=== PATIENT | female | born 1975 | race African-American/Black ===

== ENCOUNTER 2017-04-27 11:52 | Inpatient (IN) | payer OTHER ==
--- NOTE | 2017-04-15 09:25 | HP ---
Admitting History and Physical - Primary Care Physician PCP: Hayden Lawler - Admission Chief Complaint: right breast cancer History of Present Illness: Patient is a 41 yo female noted to have a right lower inner quad mass in December 2016. Patient underwent a mammo and US. Right breast US was positive for a 1.1 cm mass. Patient underwent an US guided core bx of this lesion which was positive for DCIS ER and MS positive. MRI done 02/25/2017 was c/w known cancer without evidence of contralateral dz. Patient does have a strong family h/o breast cancer therefore she has opted to do bilateral mastectomy, snbx and reconstruction. History Source: Patient Limitations to Obtaining History: No Limitations - Past Surgical History Past Surgical History: Yes: Breast Biopsy (right breast core bx (2005) benign) Home Medications - Allergies Allergies/Adverse Reactions: Allergies Allergy/AdvReac Type Severity Reaction Status Date / Time No Known Allergies Allergy Verified 04/15/17 09:36 Family Disease History - Family Disease History Family Disease History: CA: Grandparent (breast cancer), Mother (breast cancer) Other Family History: paternal cousin-breast cancer. father-lung cancer Review of Systems - Review of Systems Constitutional: reports: No Symptoms Cardiovascular: reports: No Symptoms Respiratory: reports: No Symptoms Physical Examination Constitutional: Yes: Well Nourished Cardiovascular: Yes: WNL Respiratory: Yes: WNL Breast(s): Yes: Other (Palpable right lower inner quad 1 cm mass noted. No other suspicious masses or adenopathy noted) Problem List - Problems (1) Ductal carcinoma in situ (DCIS) of right breast Code(s): D05.11 - INTRADUCTAL CARCINOMA IN SITU OF RIGHT BREAST Assessment/Plan bilateral mastectomy with right snbx, lymphoscintogram poss andx and reconstruction
[2017-04-20 15:48] VITALS: BMI 22.6
[2017-04-27] MEDS ORDERED: BUPIVACAINE HCL/PF 2.5 MG/ML - 30 ML VIAL IJ ONE (12:48)
[2017-04-27] MEDS ORDERED: ceFAZolin SODIUM 1 GM VIAL ONE (12:48)
[2017-04-27] MEDS ORDERED: GENTAMICIN SO4 80 MG/2 ML VIAL ONE (12:48)
[2017-04-27] MEDS ORDERED: HYDROmorphone *PCA* 10MG/50ML DISP.SYRIN PCA ONE ×2 (16:19→18:51)
[2017-04-27] MEDS ORDERED: ZOLPIDEM TARTRATE 5 MG TABLET PO PRN (16:27)
[2017-04-27] MEDS ORDERED: ACETAMINOPHEN 325 MG TABLET (FP) PO PRN (16:27)
[2017-04-27] MEDS ORDERED: PROMETHAZINE HCL 25 MG/1 ML VIAL IVPUSH PRN (18:08)
[2017-04-27] MEDS ORDERED: HYDROmorphone *PCA* 10MG/50ML DISP.SYRIN PCA SCH (18:15)
[2017-04-27] MEDS: CEFAZOLIN 1 GM/D5W 50 ML IVPB SCH (20:33)
[2017-04-27 21:05] LABS: HIV 1 & 2 AB NEGATIVE; HIV 1 AGp24 NEGATIVE
[2017-04-28] MEDS: CEFAZOLIN 1 GM/D5W 50 ML IVPB SCH ×4 (03:35→21:13)
--- NOTE | 2017-04-28 07:52 | OP ---
DATE OF OPERATION: 04/27/2017 PREOPERATIVE DIAGNOSIS: Right breast ductal carcinoma in situ, lower inner quadrant. POSTOPERATIVE DIAGNOSIS: Right breast ductal carcinoma in situ, lower inner quadrant. PROCEDURE: Bilateral nipple-sparing mastectomy with a right axillary sentinel lymph node biopsy with bilateral direct implant reconstructions with AlloDerm. ANESTHESIA: General endotracheal anesthesia. PRIMARY SURGEON: Desmond Hernandez MD 1ST UNDER SEAL OPERATOR: JONES Santiago PRIMARY SURGEON FOR THE BILATERAL RECONSTRUCTION WITH ALLODERM: MD DR. KIM Rodriguez'S 1ST UNDER SEAL OPERATOR: JONES Herndon COMPLICATIONS: There were no complications. Briefly, the patient is a 41-year-old premenopausal female of [place] descent. The patient felt a mass in the lower inner aspect of the right breast back in December 2016 and mammography and ultrasound showed a 1.1-cm density in the right breast lower inner quadrant. Ultrasound-guided core biopsy showed low- to intermediate-grade DCIS which was ER/CT positive. MRI showed the cancer to be localized. The patient was offered a partial mastectomy, but because of her strong family history she decided to have bilateral mastectomies and was seen by Plastic Surgery and chose bilateral direct implant reconstructions. The patient understood the need for sentinel lymph node biopsy. She was brought in for the procedure on April 27, 2017. She first underwent a lymphoscintigraphy at [facility] and was injected with technetium 99 around the right breast nipple-areolar region. She was then brought to the [facility] holding area. In the holding area, site verification was made and informed consent was obtained. She was marked preoperatively by the plastic surgeon. Patient was then brought into the operating room and laid in the OR table in the supine position. Venodynes were placed on the lower extremities. She received 1 g of Ancef prior to incision. Both breasts were sterilely prepped and draped in the usual fashion. The right axillary sentinel lymph node was first performed. No blue dye was injected since she was having a nipple-sparing procedure. Incision was made just below the hair-bearing area and dissection was undertaken using the Neoprobe to direct the dissection. Two hot nodes were easily found in the level I region of the right axilla with the 1st sentinel node having a 10-second gamma count of 35,286. The 2nd sentinel node had a 10-second gamma count of 16,420. Both were sent for frozen section, came back negative, so no other nodes were removed. Hemostasis was achieved. At this point, the right breast nipple-sparing mastectomy was first performed through an inframammary incision about 9 cm in length. The skin edges were everted and the breast was retracted inferiorly using Andrew clamps. The skin flap was raised using the PEAK radiofrequency device superiorly to the level of the clavicle, medially to the level of the sternum, laterally to the level of the latissimus, and inferiorly below the level of the inframammary fold. The breast was taken down off the pectoralis major muscle from inferomedial to superolateral and completely removed intact. It was oriented with a long lateral, short superior suture and weighed to allow for appropriate cosmetic result. Specimen radiograph of the right breast showed removal of the clip in question. It was oriented with a long lateral, short superior suture and placed in formalin and sent to Pathology as specimen. A separate anterior margin was taken in the lower inner aspect just underneath the skin as a separate anterior margin which was sent with a suture marking the biopsy cavity side. Hemostasis was achieved and the wound was copiously irrigated. At this point, instruments, gloves were changed. The left breast was approached and again a nipple-sparing mastectomy was performed through an inframammary approach about 9 cm in length in the inframammary fold. Skin edges were everted and the breast was retracted inferiorly using [place] clamps. The skin flap was raised superiorly to the level of the clavicle, medially to the level of the sternum, laterally to the level of the latissimus, and inferiorly below the level of the inframammary fold. The breast was taken down off the pectoralis major muscle from inferomedial to superolateral and completely removed intact. It was oriented with a long lateral, short superior suture and weighed to allow for appropriate cosmetic result. Hemostasis was achieved and the skin flap was trimmed for a good cosmetic result. Retroareolar biopsies were taken underneath each nipple-areolar complex and sent for frozen sections and came back negative, so both nipples were spared. At this point, Dr. Briceno became the primary surgeon and performed bilateral direct implant reconstructions in a subpectoral location using AlloDerm sutured into the inferolateral aspects of both pectoralis major muscles to allow for the direct implant reconstruction. Two Mann drains were placed around each implant and brought through separate stab incisions on the lateral skin flaps. All wounds will be closed and dictated separately by Plastic Surgery. We did use the SPY skin perfusion device during the case and she had excellent skin perfusion on both flaps and nipples. At this point in the case, estimated blood loss was about 100 mL and she was hemodynamically stable. The patient will be extubated and recovered and then admitted postoperatively for pain control as well as wound management. Again, all sponge and needle counts were correct at this point of the case. DESMOND HERNANDEZ M.D. [id number]
--- NOTE | 2017-04-28 08:53 | PN ---
Progress Note, Physician Chief Complaint: Right breast cancer S/P Bilateral nipple sparing mastectomies with implant and alloderm right sentenel node biopsy History of Present Illness: patient is C/o nausea given zofran this am. eating crackers and jesse shantell, C/O pain not OOB yet - Current Medication List Current Medications: Active Medications Acetaminophen (Tylenol -) 650 mg PO Q4H PRN PRN Reason: FEVER Heparin Sodium (Porcine) (Heparin -) 5,000 unit SQ BID MATT Hydromorphone HCl (Dilaudid [employer] -) 10 mg POLYMER MATERIALS CONSULTANT POLYMER MATERIALS CONSULTANT MATT PRN Reason: Protocol Stop: 05/04/17 18:10 Cefazolin Sodium (Ancef 1 Gm Premixed Ivpb -) 50 mls @ 100 mls/hr IVPB Q6H-IV MATT Stop: 05/04/17 20:59 Last Admin: 04/28/17 08:10 Dose: 100 mls/hr Dextrose/Sodium Chloride (D5-1/2ns -) 1,000 mls @ 100 mls/hr IV ASDIR MATT Ondansetron HCl (Zofran Injection) 4 mg IVPB Q6H PRN PRN Reason: NAUSEA AND/OR VOMITING Zolpidem Tartrate (Ambien -) 5 mg PO HS PRN PRN Reason: Insomnia - Objective Vital Signs: Vital Signs Temperature 98.7 F 04/28/17 05:55 Pulse Rate 81 04/28/17 05:55 Respiratory Rate 20 04/28/17 08:01 Blood Pressure 123/68 04/28/17 05:55 O2 Sat by Pulse Oximetry (%) 96 04/28/17 08:01 Constitutional: Yes: Well Nourished Breast(s): Yes: Other (Bilateral skin flaps viable no echymosisi incision intact with steristrips LEONIE drain funtioning) Problem List - Problems (1) Ductal carcinoma in situ (DCIS) of right breast Code(s): D05.11 - INTRADUCTAL CARCINOMA IN SITU OF RIGHT BREAST Assessment/Plan continue IV antibiotics continue POLYMER MATERIALS CONSULTANT, will discontinue and start percocet when patient is tolerating po well OOB with assitance zofran prn
[2017-04-28 08:54] LABS: MCH 22.4 pg (25.7-33.7); MCHC 31.5 g/dl (32.0-36.0); MEAN PLT VOLUME 9.8 fl (7.5-11.1); PLATELET COUNT 273 K/MM3 (134-434); RDW 16.7 % (11.6-15.6); WHITE BLOOD COUNT 17.6 K/mm3 (4.0-10.8)
[2017-04-28] MEDS: HEPARIN NA (PORCINE) 5,000 UNITS/ML 1ML VIAL SQ SCH ×2 (09:31→21:13)
[2017-04-28] MEDS: ONDANSETRON 4 MG/2 ML VIAL IVPB PRN (09:34)
--- NOTE | 2017-04-28 09:44 | PN ---
Progress Note (short form) - Note Progress Note: ANESTHESIOLOGY: 41 YO female POD #1 s/p BL mastectomy with reconstruction. Patient c/o n/v and pruritis. Adequate pain relief with hydromorphone ASPARAGUS BUNCHER. Primary team planning to transition to PO meds. Some relief of n/v with Ondansetron. Encouraged patient to get OOB and ambulate. Will follow.
[2017-04-28] MEDS: DEXTROSE 5%-0.45% SALINE 1,000 ML IV SCH ×2 (12:44→17:23)
[2017-04-28] MEDS ORDERED: HYDROmorphone HCL CARPU-JECT 1 MG/1 ML DISP.SYRIN IVPB PRN (16:34)
[2017-04-28 21:34] LABS: ANISOCYTOSIS 1+; SCHISTOCYTES OCC; TARGET CELLS OCC
[2017-04-29] MEDS: CEFAZOLIN 1 GM/D5W 50 ML IVPB SCH ×2 (03:08→10:14)
[2017-04-29 05:46] VITALS: BP 114/69; PULSE 69; TEMP 98.4
--- NOTE | 2017-04-29 10:09 | PN ---
Progress Note, Physician Chief Complaint: S/P bilateral mastectomy with reconstruction with snbx POD #2 History of Present Illness: Patient seen at the bedside, reports less nausea and good pain control. - Current Medication List Current Medications: Active Medications Acetaminophen (Tylenol -) 650 mg PO Q4H PRN PRN Reason: FEVER Heparin Sodium (Porcine) (Heparin -) 5,000 unit SQ BID MATT Last Admin: 04/28/17 21:13 Dose: 5,000 unit Cefazolin Sodium (Ancef 1 Gm Premixed Ivpb -) 50 mls @ 100 mls/hr IVPB Q6H-IV MATT Stop: 05/04/17 20:59 Last Admin: 04/29/17 03:08 Dose: 100 mls/hr Dextrose/Sodium Chloride (D5-1/2ns -) 1,000 mls @ 100 mls/hr IV ASDIR MATT Last Admin: 04/28/17 17:23 Dose: Not Given Ondansetron HCl (Zofran Injection) 4 mg IVPB Q6H PRN PRN Reason: NAUSEA AND/OR VOMITING Last Admin: 04/28/17 09:34 Dose: 4 mg Oxycodone/Acetaminophen (Percocet 5/325 -) 2 combo PO Q4H PRN PRN Reason: PAIN LEVEL 6-10 Last Admin: 04/29/17 08:50 Dose: 2 combo Oxycodone/Acetaminophen (Percocet 5/325 -) 1 combo PO Q4H PRN PRN Reason: PAIN LEVEL 1-5 Zolpidem Tartrate (Ambien -) 5 mg PO HS PRN PRN Reason: Insomnia - Objective Vital Signs: Vital Signs Temperature 98.4 F 04/29/17 05:43 Pulse Rate 69 04/29/17 05:43 Respiratory Rate 19 04/29/17 05:43 Blood Pressure 114/69 04/29/17 05:43 O2 Sat by Pulse Oximetry (%) 99 04/29/17 05:42 Constitutional: Yes: Well Nourished, Calm Breast(s): Yes: Other (Bilateral flaps warm and with good color. LEONIE x4 with serosanginous discharge. Steristrips intact.) Labs: CBC, BMP 04/28/17 07:30 Problem List - Problems (1) Ductal carcinoma in situ (DCIS) of right breast Code(s): D05.11 - INTRADUCTAL CARCINOMA IN SITU OF RIGHT BREAST Assessment/Plan bilateral mastectomy with right snbx, lymphoscintogram and reconstruction POD #2 Plan: Discharge home today with pain meds and axbx health services manager to see patient for VNS Patient to followup with Dr. Lawler and Dr. Briceno in the office
[2017-04-29] MEDS: HEPARIN NA (PORCINE) 5,000 UNITS/ML 1ML VIAL SQ SCH (10:14)
[2017-04-29] MEDS: ONDANSETRON 4 MG/2 ML VIAL IVPB PRN (11:11)
--- NOTE | 2017-05-01 10:27 | OP ---
DATE OF OPERATION: 04/27/2017 PREOPERATIVE DIAGNOSES: 1. Bilateral acquired chest wall deformity status post bilateral mastectomy (611.89). 2. Personal history of genetic carcinoma. POSTOPERATIVE DIAGNOSES: 1. Bilateral acquired chest wall deformity status post bilateral mastectomy (611.89). 2. Personal history of genetic carcinoma. PROCEDURE: 1. Right immediate breast reconstruction utilizing immediate insertion of silicone breast implant and AlloDerm reconstruction. 2. Left immediate breast reconstruction utilizing immediate insertion of silicone breast implant and AlloDerm reconstruction. 3. Intravenous injection of indocyanine green dye and intraoperative diagnostic evaluation of non-coronary intraoperative fluorescein vascular angiography x 2. SURGEON: Dr. Vida Briceno GRINDER MILL OPERATOR: Michelle Kan PA-C ANESTHESIA: GENERAL OPERATIVE PROCEDURE IN DETAIL: The patient was taken to the operating room. After induction of general anesthesia in the supine position, both arms were extended and padded. Venodyne boots were placed. The entire chest wall was painted with ChloraPrep solution over its entire extent, and sterile drapes were placed in the usual fashion. The markings, which had been made in the standing position preoperatively, were reoutlined with the patient's knowledge. Time-out procedure was performed. Attention was turned by Dr. Desmond Lawler to the mastectomies. Bilateral inframammary incisions were made and Dr. Desmond Lawler performed mastectomies. This will be dictated under separate cover. Upon completion of the mastectomies, the wounds were copiously irrigated and attention was turned to the right breast. A subpectoral dissection was begun on the right breast, superiorly from the second rib, medially to the sternal fibers, and down to the inframammary fold, elevating the pectoralis major muscle from its insertion. At this point, an 8.0 x 16.0 sheet of AlloDerm was brought into the field and sutured superiorly along the pectoralis major muscle after rehydration. This was carried along the lateral mammary fold and down the side of the breast reconstruction. At this point, an AlloDerm tissue matrix Contour medium perforated sheaths placed bilaterally, and she had implants placed of Natrelle Inspira cohesive style SCF 415-mL volume. The left breast tissue removed was 301 gm, and the right breast approximately 287 gm. This implant was placed and then sutured with 3-0 Vicryl suture continued along the inframammary fold, completely covering the implant itself. The exact same procedure was carried out symmetrically on the opposite breast, also placing a Natrelle Inspbolton cohesive style SCF 415-mL volume implant in the same subpectoral pocket. Good symmetry was seen in the sitting position. After the implants were in place, the patient was injected with 10 mL of Isocyanide green dye and the Spy imaging system was brought into the field. The skin flowed to the right and left breasts and the nipple areolar complex, and the entire skin flaps were evaluated and seen to be viable with good blood flow. The Spy intraoperative angiogram showed good blood flow before and after the placement of the implants. Two Willy-Walters drains were brought out through separate stab wounds laterally. The Smart Infuser pump catheter was inserted medially and into the subpectoral position. Both wounds were closed symmetrically using 3-0 PDS suture on the deep tissue, 3-0 in a deep dermal fashion, and 4-0 in a subcuticular fashion. Both wounds were dressed sterilely with Mastisol and Steri-Strips with a surgical bra and a compression strap. The patient tolerated the procedure well. She was awakened, extubated and transferred to the recovery room in satisfactory condition. The pediatric dental assistant was present during the entire portion of the operation and closure. DESMOND BRICENO M.D. [id number]
--- NOTE | 2017-05-03 11:57 | PATH ---
Surgical Pathology Report Patient Name: LAUREN BAIN Med. Rec. #: [id number] /Age/Gender: 1975 (Age: 41) / F Account: [id number] Location: [facility] Taken: 04/27/2017 Received: 04/27/2017 Reported: 05/03/2017 Physicians: Hayden Lawler M.D. Specimen(s) Received A: RIGHT AXILLARY SENTINEL LYMPH NODE # 1. FS B: RIGHT AXILLARY SENTINEL LYMPH NODE #2. FS C: LEFT RETROAREOLAR BX. FS D: RIGHT RETROAREOLAR BIOPSY. FS E: LEFT BREAST MASTECTOMY F: RIGHT BREAST MASTECTOMY G: RIGHT BREAST ANTERIOR MARGIN Clinical History Right breast DCIS lower inner quadrant, left prophylactic Intraoperative Consult Diagnosis A. Right axillary sentinel node #1, frozen section: One negative lymph node. B. Right axillary sentinel node #2, frozen section: One negative lymph node. C. Left retroareolar biopsy, frozen section: Negative for malignancy. D. Right retroareolar biopsy, frozen section: Negative for malignancy. Blessing Wheatley M.D. 04/27/17 Final Diagnosis A. lymph node, right axillary sentinel #1, excision (FS): One lymph node, negative for metastatic carcinoma (0/1). B. lymph node, right axillary sentinel #2, excision (Fs): One lymph node, negative for metastatic carcinoma (0/1). C. retroareola, left breast, biopsy (FS): Benign breast tissue; negative for malignancy. D. retroareola, right breast, biopsy (FS): Benign breast tissue; negative for malignancy. E. breast, left, nipple-sparing mastectomy: Atypical ductal hyperplasia (AdH) arising in a background of proliferative fibrocystic changes. Small intraductal papillomas, fibroadenomas and secretory changes. F. breast, right, nipple-sparing mastectomy: Multiple (at least FOUR) foci of microinvasive carcinoma (</= 1 mm; with one focus showing mucinous features) arising in association with extensive multifocal and multicentric ductal carcinoma in situ (DCIS). (See note) DCIS shows solid, cribriform and micropapillary ARCHITECTURE, intermediate to high nuclear grade with moderate necrosis, associated calcifications and extensive lobular extension. (See note) DCIS INVOLVES SIXTEEN OF TWENTY-TWO SLIDES (16/22), with the largest contiguous focus of DCIS measuring 1.5 cm in greatest dimension, MICROSCOPICALLY. DCIs is present predominantly in the lower inner quadrant (liq) with additional foci involving the remaining three quadrants. DCIS EXTENDS TO THE ANTERIOR AND DEEP MARGINS. SURGICAL MARGINS ARE uninvolved by microinvasive carcinoma; microinvasive carcinoma is at 4 mm FROM the closest (deep) margin. SEE specimen G For final anterior margin. No definitive lymphovascular invasion is identified. Remaining breast tissue shows proliferative fibrocystic changes and intraductal papillomas. Pathologic stage (ptnm): pt1mic (m) pN0. see also (micro)invasive carcinoma case summary below. Note: Myoepithelial immunohistochemical markers (smm-hc & p63, performed at [facility], block f9) demonstrate the absence of myoepithelial cells in one focus of microinvasive carcinoma (the second focus of microinvasive carcinoma is no longer present on deeper levels in immunohistochemical slides). Two definitive foci of microinvasion are identified in block F4 with two additional foci suspicious for microinvasion present (on H&E slides). Only one focus of microinvasive carcinoma (with mucinous features) is present on deeper sections. E-Cadherin immunostains (performed at [facility], blocks F3, F5) demonstrate membranous positivity in the foci of lobular extension of DCIS. These findings support the diagnosis. G. breast, right, anterior margin, excision: DCIS, intermediate nuclear grade, present in two of four slides (2/4). The new margin is uninvolved by DCIS; DCIS is aT 2 mm FROM THE closest NEW margin. Comments Breast Invasive Carcinoma: Surgical Pathology Cancer Case Summary Based on AJCC/UICC TNM, 7th edition Procedure _X_ Other: nipple-sparing mastectomy Lymph Node Sampling _X_ [place] lymph node(s) Specimen Laterality _X_ Right Tumor Size: Size of Largest Invasive Carcinoma _X_ Microinvasion only (= 1 mm) Tumor Focality _X_ Multiple foci of (micro) invasive carcinoma Number of foci: at least 4 Sizes of individual foci: </= 1 mm _X_ Not applicable (excisions less than total mastectomy) Ductal Carcinoma In Situ (DCIS) _X_ DCIS is present _X_ as a major component (>25% of tumor, extensive intraductal component) Histologic Type of Invasive Carcinoma : _X_ Micro-invasive carcinoma Histologic Grade: (Raisa Histologic Score) Tubular Differentiation _X_ Only microinvasion present (not graded) Nuclear Pleomorphism _X_ Only microinvasion present (not graded) Mitotic Rate _X_ Only microinvasion present (not graded) Overall Grade _X_ Only microinvasion present (not graded) Margins _X_ Margins uninvolved by (micro)invasive carcinoma Distance from closest margin: 4 mm (deep) _X_ Margin(s) positive for DCIS: deep Lymph-Vascular Invasion _X_ Indeterminate Lymph Nodes Total number of lymph nodes examined (sentinel and nonsentinel): 2 Number of sentinel lymph nodes examined: 2 Number of lymph nodes with macrometastases ( > 2 mm): 0 Number of lymph nodes with micrometastases (>0.2 mm to 2 mm and/or >200cells):0 Number of lymph nodes with isolated tumor cells (=0.2 mm and =200 cells): 0 Extranodal Extension _X_ Not applicable Pathologic Staging (pTNM) Primary Tumor (Invasive Carcinoma): pT1(chaka) Regional Lymph Nodes (pN): pN0(sn) Biomarker Studies ER, ME and Her2 studies are being attempted on the foci of microinvasive carcinoma; the results will be reported separately in an addendum. Electronically Signed Karley Wheatley M.D. Gross Description A. Received fresh for frozen section labeled "right axillary sentinel node #1," is a 1.0 x 0.8 x 0.3 cm lymph node with attached fatty tissue. Frozen section is performed on the lymph node. The frozen section residue is entirely submitted in one cassette. B. Received fresh for frozen section labeled "right axillary sentinel node #2," is a 2.0 x 1.4 x 0.5 cm lymph node with attached fatty tissue. The lymph node is bisected and frozen section is performed on the lymph node. The frozen section residue is entirely submitted in 2 cassettes. C. Received fresh for frozen section labeled "left retroareolar biopsy," is a 0.9 x 0.7 x 0.2 cm portion of red and yellow soft tissue. Frozen section is performed on the specimen. The frozen section residue is entirely submitted in one cassette. D. Received fresh labeled "right breast retroareolar biopsy," is a 1.4 x 1.0 x 0.3 cm portion of red and yellow soft tissue. Frozen section is performed on the specimen. The frozen section residue is entirely submitted in one cassette. E. Received in formalin, labeled "left mastectomy," is a 275 gram, 17.5 x 12.0 x 2.9 cm. left mastectomy specimen with a short suture marking the superior aspect and a long suture marking the lateral aspect of the specimen, per the surgeon. There is no skin or nipple present. The deep margin is inked black and the anterior soft tissue margin is inked blue. The specimen is serially sectioned from medial to lateral. Sectioning reveals abundant dense, white fibrous tissue. Spray Maker sections are submitted in 15 cassettes as follows: 1-4-upper outer quadrant; 5-7-lower outer quadrant; 8-10-upper inner quadrant; 11-13-lower inner quadrant; 14-anterior soft tissue margin; 15-deep margin. Time to formalin fixation: 15 minutes Total formalin fixation time: Approximately 26 hours. F. Received in formalin, labeled "right mastectomy," is a 283 gram, 14.5 x 14.0 x 2.8 cm. right mastectomy specimen with a short suture marking the superior aspect and a long suture marking the lateral aspect of the specimen, per the surgeon. There is no skin or nipple present. The deep margin is inked black and the anterior soft tissue margin is inked blue. The specimen is serially sectioned from lateral to medial. Sectioning reveals a focus of hemorrhage in the lower inner quadrant (LIQ), consistent with a previous biopsy site. The remaining breast parenchyma displays abundant dense, white, focally firm fibrous tissue. Spray Maker sections are submitted in 22 cassettes as follows: 1-3-LIQ focus of hemorrhage (previous biopsy site); 4-32-ouydrwpvbu LIQ tissue; 13-15-upper inner quadrant; 16-17-upper outer quadrant; 18-20-lower outer quadrant; 21-anterior soft tissue margin; 22-deep margin. Time to formalin fixation: 15 minutes Total formalin fixation time: Approximately 26 hours. G. Received in formalin labeled "right breast anterior margin," is a 3.3 x 1.6 x 0.9 cm irregular portion of fibroadipose tissue with a suture marking the biopsy cavity side, per the surgeon. The new margin is inked blue and the specimen is serially sectioned. The specimen is entirely submitted in 4 cassettes. 04/28/2017 [facility]04/28/2017
== END 2017-04-29 14:30 | disposition home or self-care (01) | DRG 581 ==
LOC: FM/S 11:52
PROVIDERS: ADMIT Surgery Surgical Oncology; ATTEND Surgery Surgical Oncology
PROC: 0HUV0JZ Supplement Bilateral Breast with Synthetic Substitute, Open Approach (ICD-10-PCS; 2017-04-27)
PROC: 0HTV0ZZ Resection of Bilateral Breast, Open Approach (ICD-10-PCS; principal; 2017-04-27 13:57)
PROC: 07B50ZX Excision of Right Axillary Lymphatic, Open Approach, Diagnostic (ICD-10-PCS; 2017-04-27 13:57)
PROC: 0HRV0JZ Replacement of Bilateral Breast with Synthetic Substitute, Open Approach (ICD-10-PCS; 2017-04-27 13:57)
DX: D05.11 Intraductal carcinoma in situ of right breast (principal); M95.4 Acquired deformity of chest and rib
CPT/HCPCS: 36415; 78195-TC; 84703; 85027; 87389; 88307-TC; 88331-TC; 88332; 88341-TC; 94010; 94760; A9541; J1644

== ENCOUNTER 2017-09-03 06:30 | Day surgery (SDC) | payer OTHER ==
[2017-08-26 11:18] VITALS: BMI 22.9
[2017-09-03] MEDS ORDERED: LIDOCAINE 1%/EPI 1:100000 (20 ML MULTI DOSE VIAL) ONE (07:35)
[2017-09-03] MEDS ORDERED: LIDOCAINE HCL 1%, 10 MG/ML (20ML VIAL) ONE (07:35)
[2017-09-03] MEDS ORDERED: PROPOFOL 20 ML ONE ×4 (07:58→08:53)
[2017-09-03] MEDS ORDERED: LIDOCAINE HCL/PF 2% SDV 5ML VIAL ONE (07:59)
[2017-09-03] MEDS ORDERED: SUCCINYLCHOLINE CHLORIDE 200 MG/10 ML VIAL ONE (07:59)
[2017-09-03] MEDS ORDERED: ceFAZolin SODIUM 1 GM VIAL ONE (08:10)
[2017-09-03] MEDS ORDERED: DEXAMETHASONE SOD PHOSPHATE 4 MG/1 ML VIAL ONE (08:11)
[2017-09-03] MEDS ORDERED: ONDANSETRON 4 MG/2 ML VIAL ONE ×2 (08:11→10:26)
[2017-09-03] MEDS ORDERED: HYDROmorphone HCL/PF 1 MG/ML VIAL (FOR PYXIS CHARGING ONLY) ONE (08:20)
[2017-09-03] MEDS ORDERED: LIDOCAINE 1%/EPI 1:100000 (50 ML MULTI DOSE VIAL) INF ONE (09:27)
--- NOTE | 2017-09-03 09:51 | OP ---
Operative Note - Note: Operative Date: 09/03/17 Pre-Operative Diagnosis: Aquired chest wall deformity Operation: left breast capsulloraphy with fat grafting from abdomen to bilateral breasts Implants: none Post-Operative Diagnosis: Same as Pre-op Anesthesia: Local, MAC Specimens Removed: none Estimated Blood Loss (mls): 20 Operative Report Dictated: Yes
[2017-09-03] MEDS ORDERED: ONDANSETRON 4 MG/2 ML VIAL IVPUSH PRN (10:02)
[2017-09-03] MEDS ORDERED: oxyCODONE HCL 5 MG TABLET PO PRN (10:02)
[2017-09-03] MEDS ORDERED: LACTATED RINGERS SOLUTION 1,000 ML IV SCH (10:15)
[2017-09-03] MEDS ORDERED: HYDROmorphone HCL CARPU-JECT 1 MG/1 ML DISP.SYRIN ONE (10:42)
[2017-09-03] MEDS ORDERED: HYDROmorphone HCL CARPU-JECT 1 MG/1 ML DISP.SYRIN IVPUSH ONE (10:52)
[2017-09-03] MEDS ORDERED: oxyCODONE HCL 5 MG TABLET ONE ×2 (12:02→12:56)
[2017-09-03] MEDS ORDERED: KETOROLAC TROMETHAMINE 30 MG/1 ML VIAL ONE (12:03)
[2017-09-03 13:29] VITALS: TEMP 97.5
[2017-09-03 14:30] VITALS: BP 107/58; PULSE 87
--- NOTE | 2017-09-04 08:35 | OP ---
DATE OF OPERATION: 09/03/2017 SURGEON: Desmond Briceno MD ROAD MACHINERY INSPECTOR SURGEON: JONES Herndon PREOPERATIVE DIAGNOSES: 1. Bilateral acquired chest wall deformity status post bilateral mastectomy. 2. Malposition of breast implants with asymmetry. 3. Mechanical complication of breast implants. POSTOPERATIVE DIAGNOSES: 1. Bilateral acquired chest wall deformity status post bilateral mastectomy. 2. Malposition of breast implants with asymmetry. 3. Mechanical complication of breast implants. OPERATIVE PROCEDURE: 1. Right breast reconstruction utilizing other technique. 2. Left breast reconstruction utilizing other technique. 3. Left breast capsulorraphy for symmetry and malposition. OPERATIVE INDICATION: The patient is a young woman who underwent a mastectomy and now presents with asymmetry of the reconstructed chest wall and malposition of her implants due to the procedure. The risks, benefits, surgical versus nonsurgical alternatives as well as the material complications of the procedure were described on multiple occasions preoperatively. She agreed to the planned procedure. OPERATIVE PROCEDURE IN DETAIL: The patient was taken to the operating room, and after induction of general anesthesia in supine position, both arms were extended and padded. Venodyne boots were placed. At this point, the entire chest wall, abdomen, and flanks were prepped with ChloraPrep over their entire extent. After allowing time-out, prepping and draping, and placement of drapes in the usual fashion, the mastectomy scars were attended to. At this point, 1% local lidocaine anesthesia with 1:200,000 epinephrine was injected into the mastectomy scars for topical anesthesia and hemostasis. After allowing topical anesthesia and hemostasis, attention was also turned to the abdominal wall. Incisions were planned in the flank area for harvest of reconstructed tissue. At this point, an incision was made down through skin and subcutaneous tissue of the left breast. It was carried down to the underlying deep fascia over the capsule and implant. A separate incision was made in the left breast along the lateral portion of the mastectomy scar opening the scar and carrying it down through the subcutaneous tissue to the underlying deep tissues. The capsule was then opened along the course of the wound and the implant exposed. A lateral capsulorraphy was carried out in the field by usage of the direct vision and cautery. Once the capsulorraphy was performed, attention was turned back to the abdominal wall. Incisions were made down through the skin and subcutaneous tissue through the subcutaneous tissue in the deep plane of the abdominal wall. This was carried right down to the rectus fascia and tissue was then harvested for reconstructive purposes over the entire abdominal wall and lateral flank area. This tissue was transferred to the back table, cleansed, prepped, and readied for reconstructive purposes. The tissue was then transferred to the right and left breast independently with the majority of the tissue being on the medial side of the right breast as well as the superior and medial side of both breasts. Once this was accomplished, good shape and contour was seen. The patient was placed into the semi-Avalos sitting position, and decision was made to close because of good symmetry. The wounds were closed with interrupted and running sutures in the usual fashion. Dermabond, Steri-Strips, and a compressive dressing were placed. She was awakened, extubated, and transferred to the recovery room in satisfactory condition. DESMOND BRICENO M.D. MAGNOLIA/[id number]
== END 2017-09-03 14:05 | disposition home or self-care (01) ==
LOC: FASU 06:30
PROVIDERS: ATTEND Plastic Surgery
PROC: 0HRV07Z Replacement of Bilateral Breast with Autologous Tissue Substitute, Open Approach (ICD-10-PCS; principal; 2017-09-03 08:24)
DX: M95.4 Acquired deformity of chest and rib (principal); Z90.13 Acquired absence of bilateral breasts and nipples; T85.41XA Breakdown (mechanical) of breast prosthesis and implant, initial encounter; T85.42XA Displacement of breast prosthesis and implant, initial encounter; Y83.8 Other surgical procedures as the cause of abnormal reaction of the patient, or of later complication, without mention of misadventure at the time of the procedure; Y92.89 Other specified places as the place of occurrence of the external cause
CPT/HCPCS: 84703; 94760

== ENCOUNTER → 2018-04-18 | Day surgery (SDC) | payer OTHER ==
--- NOTE | 2018-04-19 13:55 | PATH ---
Surgical Pathology Report Patient Name: LAUREN BAIN [facility]. Rec. #: [id number] /Age/Gender: 1975 (Age: 42) / F Account: [id number] Location: [facility] RADIOLOGY U Taken: 04/18/2018 Received: 04/18/2018 Reported: 04/19/2018 Physicians: Derian Goodman M.D. Specimen(s) Received LEFT BREAST 10:00 10-11 CMFN CORE BIOPSY Clinical History Ultrasound findings: Suspicious Left breast mass, rule out carcinoma, status post bilateral mastectomy, history of right breast cancer Final Diagnosis BREAST, LEFT, 10:00 10-11 CM FN, CORE BIOPSY: FIBROADIPOSE TISSUE SHOWING FAT NECROSIS AND DENSE FIBROSIS. Electronically Signed Karley Wheatley M.D. Gross Description Received in formalin labeled "left breast biopsy 10:00, 10-11 cmfn," are 5 taylor-yellow, cylindrical portions of soft tissue ranging from 0.3-1.3 cm in length and averaging 0.2 cm in diameter. The specimens are submitted in toto in one cassette. Time to formalin fixation: 2 minutes Total formalin fixation time: Approximately 6 hours. /04/18/201804/18/2018
== END | disposition home or self-care (01) ==
LOC: FRADUS-SUR 11:22
PROVIDERS: ATTEND Surgery Surgical Oncology
PROC: 0HBU3ZX Excision of Left Breast, Percutaneous Approach, Diagnostic (ICD-10-PCS; principal; 2018-04-18)
DX: N64.1 Fat necrosis of breast (principal); N60.22 Fibroadenosis of left breast; Z90.13 Acquired absence of bilateral breasts and nipples; B85.3 Phthiriasis
CPT/HCPCS: 19083; 77065-TC; 87899; 88305-TC; A4648

== ENCOUNTER 2022-10-08 07:56 | Day surgery (SDC) | payer OTHER ==
[2022-09-22 13:17] VITALS: BMI 24.0
[2022-10-08] MEDS ORDERED: EPINEPHrine/PF 1 MG/1 ML (1:1,000) AMPULE ONE (08:34)
[2022-10-08] MEDS ORDERED: SODIUM BICARBONATE 8.4% 50 MEQ/50 ML VIAL ONE (08:35)
[2022-10-08] MEDS ORDERED: BUPIVACAINE HCL/EPINEPHRINE/PF 30 ML VIAL IJ ONE (08:35)
[2022-10-08] MEDS ORDERED: ceFAZolin SODIUM 1 GM VIAL ONE (08:35)
[2022-10-08] MEDS ORDERED: LIDOCAINE HCL 2% (20ML MULTI-DOSE VIAL) ONE (08:35)
[2022-10-08] MEDS ORDERED: GENTAMICIN SO4 80 MG/2 ML VIAL ONE (08:36)
[2022-10-08] MEDS ORDERED: VANCOMYCIN 1,000 MG VIAL (RESTRICTED TO ID ONLY) ONE (08:36)
[2022-10-08] MEDS ORDERED: oxyCODONE HCL 5 MG TABLET PO PRN (10:49)
[2022-10-08] MEDS ORDERED: ONDANSETRON 4 MG/2 ML VIAL IVPUSH PRN (10:49)
[2022-10-08] MEDS ORDERED: PROPOFOL 20 ML ONE ×2 (10:59→12:50)
[2022-10-08] MEDS ORDERED: MIDAZOLAM HCL 2 MG/2 ML SINGLE DOSE VIAL ONE (10:59)
[2022-10-08] MEDS ORDERED: LACTATED RINGERS SOLUTION 1,000 ML IV SCH (11:00)
[2022-10-08] MEDS ORDERED: BUPIVACAINE 0.25% /EPI 1:200,000 10 ML VIAL INF ONE (11:22)
[2022-10-08] MEDS ORDERED: ACETAMINOPHEN INJECTION 100 ML IVPB ONE (11:35)
[2022-10-08] MEDS ORDERED: FENTANYL CITRATE/PF 50 MCG/ML VIAL ONE ×2 (13:05→13:33)
[2022-10-08] MEDS ORDERED: ONDANSETRON 4 MG/2 ML VIAL ONE (13:33)
[2022-10-08] MEDS ORDERED: oxyCODONE HCL 5 MG TABLET ONE (14:31)
[2022-10-08 14:43] VITALS: TEMP 98
[2022-10-08 15:07] VITALS: BP 120/72; PULSE 80; RESP 19
== END 2022-10-08 16:05 | disposition home or self-care (01) ==
LOC: FASU 07:56
PROVIDERS: ATTEND Plastic Surgery
PROC: 0HX5XZZ Transfer Chest Skin, External Approach (ICD-10-PCS; 2022-10-08)
PROC: 0HRV37Z Replacement of Bilateral Breast with Autologous Tissue Substitute, Percutaneous Approach (ICD-10-PCS; 2022-10-08)
PROC: 0HPU0JZ Removal of Synthetic Substitute from Left Breast, Open Approach (ICD-10-PCS; principal; 2022-10-08 11:22)
PROC: 0HRU0JZ Replacement of Left Breast with Synthetic Substitute, Open Approach (ICD-10-PCS; 2022-10-08 11:22)
DX: Z85.3 Personal history of malignant neoplasm of breast (principal); Z90.13 Acquired absence of bilateral breasts and nipples; N65.0 Deformity of reconstructed breast
CPT/HCPCS: 14000; 15771; 19342; 19371; L8600; 84703; 88300-TC; 88304-TC; 88305-TC; 94760; C1789